=== PATIENT | male | born 1995 | race Hispanic/Latino ===

== ENCOUNTER 2019-11-03 | Emergency (ER) | payer SELFPAY ==
[2019-11-03] MEDS ORDERED: LAMISIL AT ATHLET1 % TOP (21:06)
[2019-11-03] MEDS ORDERED: KEFLEX500 M1 PO (21:06)
== END 2019-11-03 21:33 | disposition home or self-care (01) | DRG 603 ==
DX: L03.032 Cellulitis of left toe (principal); B35.3 Tinea pedis